=== PATIENT | female | born 1985 | race Asian ===

== ENCOUNTER 2018-04-30 13:15 | Inpatient (IN) | payer OTHER ==
[~2018-04-30 13:15] MED LIST: CEFAZOLIN 1 GM/D5W 1 GM/50 ML BAG IVPB SCH; CITRIC ACID/SODIUM CITRATE 30 ML UNIT-DOSE CUP PO ONE; ELECTROLYTE-148 SOLN 500 ML IV ONE
[2018-04-30 13:38] VITALS: BMI 28.7
[2018-04-30] MEDS ORDERED: ELECTROLYTE-148 SOLN 1,000 ML IV SCH (13:45)
[2018-04-30] MEDS ORDERED: OXYTOCIN 30 UNITS in 0.9% NS 30 UNIT/500 ML INFUS.BAG IVPB ONE (15:36)
[2018-04-30] MEDS ORDERED: morphine SULFATE/Preservative Free 0.5 MG/ML (1cc Syringe) ONE (15:42)
[2018-04-30] MEDS ORDERED: ceFAZolin SODIUM 1 GM VIAL ONE ×3 (15:42→23:49)
--- NOTE | 2018-04-30 15:47 | HP ---
Past Medical History - Primary Care Physician PCP:: Felix Porter - Admission Chief Complaint: 39 weeks, previous c/s . request of repeat c/s History Source: Patient Limitations to Obtaining History: No Limitations - Past Medical History ...: 2 ...Para: 1 ...Term: 1 ...EDC by Sumit: 05/03/18 Infectious Disease: Yes: HIV (false positive) - Past Surgical History Past Surgical History: Yes: None, Hx Myomectomy: No Hx Transabdominal Cerclage: No - Smoking History Smoking history: Never smoked Have you smoked in the past 12 months: No - Alcohol/Substance Use Hx Alcohol Use: No History of Substance Use: reports: None - Social History Usual Living Arrangement: Yes: With Spouse History of Recent Travel: No Home Medications - Allergies Allergies/Adverse Reactions: Allergies Allergy/AdvReac Type Severity Reaction Status Date / Time No Known Allergies Allergy Verified 04/30/18 13:23 - Home Medications Home Medications: Ambulatory Orders Ferrous Sulfate 325 mg PO DAILY 04/30/18 Vit/Iron Fum/Folic AC [ Tablet] 1 each PO DAILY 04/30/18 Review of Systems - Review of Systems Constitutional: reports: No Symptoms Eyes: reports: No Symptoms HENT: reports: No Symptoms Neck: reports: No Symptoms Cardiovascular: reports: No Symptoms Respiratory: reports: No Symptoms Gastrointestinal: reports: No Symptoms Genitourinary: reports: No Symptoms Breasts: reports: No Symptoms Reported Musculoskeletal: reports: No Symptoms Integumentary: reports: No Symptoms Neurological: reports: No Symptoms Endocrine: reports: No Symptoms Hematology/Lymphatic: reports: No Symptoms Psychiatric: reports: No Symptoms Physical Exam - Maternity Vital Signs: Vital Signs Temperature 98.2 F 04/30/18 13:29 Pulse Rate 83 04/30/18 13:29 Respiratory Rate 20 04/30/18 13:29 Blood Pressure 107/64 04/30/18 13:29 O2 Sat by Pulse Oximetry (%) Constitutional: Yes: Well Nourished, No Distress, Calm Eyes: Yes: WNL, Conjunctiva Clear, EOM Intact HENT: Yes: WNL, Atraumatic, Normocephalic Neck: Yes: WNL, Supple, Trachea Midline Cardiovascular: Yes: WNL, Regular Rate and Rhythm Breast(s): Yes: WNL - Abdominal Exam/OB Fundal Height: 38 Number of Fetuses: Single Presentation: Vertex Contractions: No Intensity: Unaware Monitor Mode: External Heart Rate Location: [facility] Category: I Accelerations: Uniform Decelerations: None - Vaginal Exam/OB Vaginal Bleediing: No Speculum Exam: No Dilatation (cm): closed Effacement (%): 0 Presentation: Compound Station: -3 - Physical Exam Musculoskeletal: Yes: WNL Extremities: Yes: WNL Edema: LLE: Trace, RLE: Trace Deep Tendon Reflex Grade: Normal +2 Psychiatric: Yes: WNL Hemorrhage Risk Assessment - Risk Factors Medium Risk Factors: Yes: Prior , uterine surgery,or multiple laparotomies Risk Score: 1 Risk Level: Medium Risk Problem List - Problems (1) with 39 completed weeks gestation Code(s): Z3A.39 - 39 WEEKS GESTATION OF (2) Previous section complicating Code(s): O34.219 - MATERNAL CARE FOR UNSP TYPE SCAR FROM PREVIOUS DEL Assessment/Plan repeat c/s . rba discussed
[2018-04-30] MEDS ORDERED: BENZOCAINE 20% 57 GM BOTTLE TP PRN (16:01)
[2018-04-30] MEDS ORDERED: oxyCODONE HCL 5 MG TABLET PO PRN (16:01)
[2018-04-30] MEDS ORDERED: WITCH HAZEL 50% (TUCKS) 40 PAD/JAR PAD TP PRN (16:01)
[2018-04-30] MEDS ORDERED: diphenhydrAMINE HCL 25 MG CAPSULE (FP) PO PRN (16:01)
[2018-04-30] MEDS ORDERED: BENZOCAINE 28 GM HEMORRHOIDAL OINTMENT PR PRN (16:01)
[2018-04-30] MEDS ORDERED: IBUPROFEN 800 MG/8 ML IJ IVPB PRN (16:01)
[2018-04-30] MEDS ORDERED: METHYLERGONOVINE MALEATE 0.2 MG/1 ML AMP IM PRN (16:01)
[2018-04-30] MEDS ORDERED: OXYTOCIN 20 UNITS in 0.9% NS 20 UNIT/1,000 ML INFUS.BAG IV SCH (16:15)
[2018-04-30] MEDS ORDERED: DEXTROSE 5%-LACTATED RINGERS 1,000 ML IV SCH (16:15)
[2018-04-30] MEDS ORDERED: ONDANSETRON 4 MG/2 ML VIAL IVPUSH PRN (16:41)
[2018-04-30] MEDS ORDERED: morphine SULFATE/Preservative Free 0.5 MG/ML (1cc Syringe) SPIN ONE (16:41)
[2018-04-30] MEDS ORDERED: OXYTOCIN 20 UNITS in 0.9% NS 20 UNIT/1,000 ML INFUS.BAG IV ONE (16:55)
[2018-04-30] MEDS ORDERED: ACETAMINOPHEN 325 MG TABLET (FP) ONE (19:16)
[2018-04-30] MEDS ORDERED: oxyCODONE HCL 5 MG TABLET ONE (19:17)
[2018-04-30] MEDS: oxyCODONE HCL 5 MG TABLET PO PRN (19:20)
[2018-04-30] MEDS: ACETAMINOPHEN 325 MG TABLET (FP) PO PRN (19:20)
[2018-04-30] MEDS ORDERED: DEXTROSE 5%-WATER - 50 ML IVPB ONE (23:48)
[2018-05-01] MEDS: CEFAZOLIN 1 GM in DEXTROSE 5%-WATER - 50 ML IVPB SCH ×2 (00:10→08:11)
[2018-05-01] MEDS ORDERED: OXYTOCIN 20 UNITS in 0.9% NS 20 UNIT/1,000 ML INFUS.BAG IV SCH (00:14)
[2018-05-01] MEDS ORDERED: DEXTROSE 5%-WATER - 50 ML IVPB ONE (08:05)
[2018-05-01] MEDS ORDERED: ceFAZolin SODIUM 1 GM VIAL ONE (08:05)
[2018-05-01 08:18] LABS: BASO % 0.3 % (0-2.0); EOS % 0.6 % (0-4.5); HEMATOCRIT 31.2 % (32.4-45.2); HEMOGLOBIN 10.7 GM/dL (10.7-15.3); LYMPH % 15.2 % (8-40); MCH 29.8 pg (25.7-33.7); MCHC 34.4 g/dl (32.0-36.0); MEAN CELL VOLUME 86.6 fl (80-96); MEAN PLT VOLUME 9.1 fl (7.5-11.1); NEUT % 79.9 % (42.8-82.8); PLATELET COUNT 192 K/MM3 (134-434); RDW 13.7 % (11.6-15.6); WHITE BLOOD COUNT 10.6 K/mm3 (4.0-10.0)
--- NOTE | 2018-05-01 08:39 | OP ---
DATE OF OPERATION: 04/30/2018 PREOPERATIVE DIAGNOSIS: , 39 weeks, previous section, request of repeat section. POSTOPERATIVE DIAGNOSIS: , 39 weeks, previous section, request of repeat section. PROCEDURE: Repeat low segment transverse section. SURGEON: Ashwin Rodriguez MD RETURNED GOODS REPAIRER: Siddharth Su MD ANESTHESIA: Spinal. ANESTHESIOLOGIST: Jose Clinton MD ESTIMATED BLOOD LOSS: 700 mL. FINDING: Live baby boy, Apgars 9 and 9. OPERATION: The patient was taken to the operating room, had adequate spinal anesthesia. Abdomen and perineum were prepped and draped. Pfannenstiel abdominal skin incision was made. Abdominal wall was cut layer by layer, until peritoneum was exposed and incised. Upon entering the abdominal cavity, lower uterine segment was identified. There were multiple blood vessels crossing the lower uterine segment and on each broad ligament extending to the broad ligament. These blood vessels were extending to the broad ligaments. Then, lower uterine segment was identified and bladder flap was developed and low transverse uterine incision was made. Incision extended laterally with bandaged scissors. Amniotic sac was entered. Clear fluid, head delivered from occiput transverse position. Nasal sinuses were suctioned, and live baby boy was delivered without any difficulty. Placenta was delivered manually. Uterine cavity was cleaned of all remaining tissue. Uterus appeared to be atonic and not uday well. Methergine was given. Uterine incision was closed in 2 layers, 1st layer with 0 Biosyn continuous suture, the 2nd layer with 0 Biosyn imbricating the 1st layer. There was some bleeding at both edges, which were sutured with interrupted suture 0 Biosyn, and then hemostasis was established. Pelvic cavity several times irrigated. No active bleeding was seen. Then, bladder flap was closed with 0 Biosyn continuous suture. Both tubes and ovaries were checked, were normal. No active bleeding was seen. All the lap pad, sponge, and instrument counts were correct. Again, the incision edges were checked with no bleeding, and at this time, uterine incision edges were checked. At this time, there was no active bleeding seen. Then, peritoneum was closed with 0 Biosyn continuous suture, muscles were brought together with interrupted sutures of 0 Biosyn, fascia was closed with 0 Biosyn continuous suture, subcutaneous fat with interrupted suture of 0 Biosyn, and the skin was closed with 3-0 Vicryl subcuticular continuous suture. Patient tolerated the procedure well, left the OR in good condition. ASHWIN RODRIGUEZ M.D. [id number]
[2018-05-01] MEDS: IBUPROFEN 600 MG TABLET (FP) PO PRN ×2 (09:21→20:08)
[2018-05-01] MEDS: ENOXAPARIN NA (PORCINE) 40 MG/0.4 ML DISP.SYRIN SQ SCH (09:21)
[2018-05-01] MEDS: SIMETHICONE 80 MG TAB.CHEW (FP) PO PRN ×2 (09:22→20:08)
[2018-05-01] MEDS: ACETAMINOPHEN 325 MG TABLET (FP) PO PRN ×2 (09:22→20:09)
--- NOTE | 2018-05-01 10:16 | PN ---
Progress Note (short form) - Note Progress Note: Post op day#1.S/p C section under spinal anesthesia with duramorph uneventful.Patient stable and has little pain for which she is on medication.no any anesthesia related problem.Patient DC from the anesthesia care.
[2018-05-01] MEDS ORDERED: BISACODYL 10 MG SUPP.RECT PR PRN (16:01)
[2018-05-01] MEDS: SENNOSIDES/DOCUSATE COMBO (SENNA PLUS) TABLET (UD) PO PRN (20:08)
[2018-05-02] MEDS: SIMETHICONE 80 MG TAB.CHEW (FP) PO PRN ×5 (00:35→21:15)
[2018-05-02] MEDS: IBUPROFEN 600 MG TABLET (FP) PO PRN ×5 (00:35→21:16)
[2018-05-02] MEDS: ACETAMINOPHEN 325 MG TABLET (FP) PO PRN ×3 (00:36→11:36)
--- NOTE | 2018-05-02 09:52 | PN ---
Progress Note (short form) - Note Progress Note: pod 1 doing well, ambulating. afebrile, VSS CBC, BMP 05/01/18 07:15 abdomen soft, no distension, no cva incision dry, clean no calf tenderness plan ambulate , advance diet Problem List - Problems (1) with 39 completed weeks gestation Code(s): Z3A.39 - 39 WEEKS GESTATION OF (2) Previous section complicating Code(s): O34.219 - MATERNAL CARE FOR UNSP TYPE SCAR FROM PREVIOUS DEL
--- NOTE | 2018-05-02 09:54 | PN ---
Progress Note (short form) - Note Progress Note: pod 2 s/p repeat c/s , passing gas ,ambulating, voids ok CBC, BMP 05/01/18 07:15 Last Vital Signs Temp Pulse Resp BP Pulse Ox 97.9 F 54 L 20 96/58 100 05/02/18 07:30 05/02/18 07:30 05/02/18 07:30 05/02/18 07:30 04/30/18 18:30 abdomen sofr, no distension, no cva incision healing well, no redness ,no discharge no ca;lf tenderness plan ambulate , cbc in am Problem List - Problems (1) with 39 completed weeks gestation Code(s): Z3A.39 - 39 WEEKS GESTATION OF (2) Previous section complicating Code(s): O34.219 - MATERNAL CARE FOR UNSP TYPE SCAR FROM PREVIOUS DEL
[2018-05-02] MEDS: ENOXAPARIN NA (PORCINE) 40 MG/0.4 ML DISP.SYRIN SQ SCH (10:00)
--- NOTE | 2018-05-02 12:06 | DS ---
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 Vital Signs: Vital Signs Temperature 97.9 F 05/02/18 07:30 Pulse Rate 54 L 05/02/18 07:30 Respiratory Rate 20 05/02/18 07:30 Blood Pressure 96/58 05/02/18 07:30 O2 Sat by Pulse Oximetry (%) 100 04/30/18 18:30 Constitutional: Yes: Well Nourished, No Distress, Calm Eyes: Yes: WNL, Conjunctiva Clear, EOM Intact HENT: Yes: WNL, Atraumatic, Normocephalic Neck: Yes: WNL, Supple, Trachea Midline Cardiovascular: Yes: WNL, Regular Rate and Rhythm Respiratory: Yes: WNL, Regular, CTA Bilaterally Gastrointestinal: Yes: WNL ...Rectal Exam: Yes: WNL Renal/: Yes: WNL ....Post : Yes: Uterus firm, Uterus non-tender, Slight lochia rubra Breast(s): Yes: WNL Musculoskeletal: Yes: WNL Extremities: Yes: WNL Edema: No Integumentary: Yes: WNL Wound/Incision: Yes: Clean/Dry, Well Approximated, Sutures Intact Neurological: Yes: WNL, Alert, Oriented ...Motor Strength: WNL Psychiatric: Yes: WNL, Alert, Oriented Labs: CBC, BMP 05/01/18 07:15 Delivery - Delivery Section: Repeat, Low Flap Transverse (no complication) Type of Anesthesia: Spinal Episiotomy/Laceration: None EBL (cc): 700 Delivery, Single - Stages of Labor Date of Delivery: 04/30/18 Time of Delivery: 16:21 Time Placenta Delivered: 16:23 Placenta: Yes: Expressed - Condition of Infant 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 Present: Yes Name: Chucky Bautista Infant Gender: Male Weight: 7 lb 5 oz Position: Right, OT Total Hours ROM (Hrs/Mins): 0/02 - 1 Minute Total Score: 9 5 Minutes Total Score: 9 - [place] Feeding Plan Initial Plan: Elected not to breastfeed exclusively throughout hospitalization Discharge Summary Reason For Visit: Current Active Problems with 39 completed weeks gestation (Acute) Previous section complicating (Acute) Procedures: Principal: repeat LST c/s Hospital Course: no complication - Instructions - Home Medications Comprehensive Discharge Medication List: Ambulatory Orders Ferrous Sulfate 325 mg PO DAILY 04/30/18 Vit/Iron Fum/Folic AC [ Tablet] 1 each PO DAILY 04/30/18
--- NOTE | 2018-05-02 15:39 | PATH ---
Surgical Pathology Report Patient Name: TATIANA LANCE [facility]. Rec. #: [id number] /Age/Gender: 1985 (Age: 33) / F Account: [id number] Location: [facility] OBS/TRAVEL DIRECTOR Taken: 04/30/2018 Received: 05/01/2018 Reported: 05/02/2018 Physicians: Felix Porter M.D. Specimen(s) Received PLACENTA Clinical History , 2015 Final Diagnosis Placenta, : mature third trimester placenta with trivessel umbilical cord. Electronically Signed Brianne Olvera M.D. Gross Description The specimen is received fresh labeled placenta and is a 406 gram, 19.0 x 14.5 x 2.0 cm. placenta with attached membranes and umbilical cord. The attached membranes are meza, translucent with focal opacities and insert marginally. The umbilical cord measures 42 cm. in length and averages 1.3 cm. in diameter. The cord inserts eccentrically, 3 cm. to the nearest margin. No true knots or strictures are identified. Cut surface of the umbilical cord reveals 3 vessels. The surface is louise-blue with minimal fibrin deposition and appropriate caliber vessels. The maternal surface is red-brown with focal defects. Sectioning reveals red-brown, spongy parenchyma. No lesions are identified. Statistical Machine Servicer sections are submitted in three cassettes as follows: 1- membrane rolls and umbilical cord; 2-3- full thickness sections of placenta. /05/01/2018 [facility]05/01/2018
[2018-05-02] MEDS: oxyCODONE HCL 5 MG TABLET PO PRN ×2 (16:04→21:15)
[2018-05-02] MEDS: SENNOSIDES/DOCUSATE COMBO (SENNA PLUS) TABLET (UD) PO PRN (21:15)
[2018-05-03] MEDS: IBUPROFEN 600 MG TABLET (FP) PO PRN ×4 (03:09→18:21)
[2018-05-03] MEDS: SIMETHICONE 80 MG TAB.CHEW (FP) PO PRN ×5 (03:09→23:08)
[2018-05-03] MEDS: oxyCODONE HCL 5 MG TABLET PO PRN ×5 (03:10→23:08)
--- NOTE | 2018-05-03 08:12 | PN ---
Post Progress Note - Subjective Subjective: Patient without acute complaints. Reports tolerating oral intake without nausea or vomiting. Ambulating without dizziness. Denies fevers or chills. Pain well controlled with oral pain medication. with supplementation. Passing flatus. Post Day: 3 Type of Delivery: Repeat C/S Vital Signs: Vital Signs Temperature 98.2 F 05/02/18 21:32 Pulse Rate 76 05/02/18 21:32 Respiratory Rate 20 05/02/18 21:32 Blood Pressure 103/65 05/02/18 21:32 O2 Sat by Pulse Oximetry (%) 100 04/30/18 18:30 Breast Exam: Yes: Soft Uterus: Yes: Fundus Firm, Fundus below umbilicus Incision: Yes: Sutures intact. No: Redness, Oozing Abdomen/GI: Yes: Abdomen soft, Abdominal Distention (soft), Tender (mild incisional), Passing flatus, Tolerating PO Lochia: Yes: Serosa Lochia, amount: Small Extremities: Yes: Calves non-tender. No: Edema Activity: Ambulating - Labs Labs: CBC WBC 10.6 K/mm3 (4.0-10.0) H 05/01/18 07:15 RBC 3.60 M/mm3 (3.60-5.2) 05/01/18 07:15 Hgb 10.7 GM/dL (10.7-15.3) 05/01/18 07:15 Hct 31.2 % (32.4-45.2) L 05/01/18 07:15 MCV 86.6 fl (80-96) 05/01/18 07:15 MCH 29.8 pg (25.7-33.7) 05/01/18 07:15 MCHC 34.4 g/dl (32.0-36.0) 05/01/18 07:15 RDW 13.7 % (11.6-15.6) 05/01/18 07:15 Plt Count 192 K/MM3 (134-434) 05/01/18 07:15 MPV 9.1 fl (7.5-11.1) 05/01/18 07:15 Absolute Neuts (auto) 8.5 # 05/01/18 07:15 Neutrophils % 79.9 % (42.8-82.8) 05/01/18 07:15 Lymphocytes % 15.2 % (8-40) 05/01/18 07:15 Monocytes % 4.0 % (3.8-10.2) 05/01/18 07:15 Eosinophils % 0.6 % (0-4.5) 05/01/18 07:15 Basophils % 0.3 % (0-2.0) 05/01/18 07:15 Nucleated RBC % 0 % (0-0) 05/01/18 07:15 Assessment/Plan 32 POD # 3 s/p repeat CD, afebrile, vital signs stable, doing well 1. Patient stable for discharge home tomorrow. 2. Will continue routine PO care 3. Desires oxycodone for DC, will send today [facility] Reference #: [id number] 4. Will continue to monitor
[2018-05-03 09:02] LABS: BASO % 0.5 % (0-2.0); EOS % 1.8 % (0-4.5); HEMATOCRIT 30.9 % (32.4-45.2); HEMOGLOBIN 10.7 GM/dL (10.7-15.3); LYMPH % 18.8 % (8-40); MCHC 34.5 g/dl (32.0-36.0); MEAN CELL VOLUME 86.9 fl (80-96); MEAN PLT VOLUME 8.6 fl (7.5-11.1); MONO % 3.6 % (3.8-10.2); NEUT % 75.3 % (42.8-82.8); PLATELET COUNT 239 K/MM3 (134-434); RBC 3.55 M/mm3 (3.60-5.2); RDW 14.2 % (11.6-15.6); WHITE BLOOD COUNT 9.7 K/mm3 (4.0-10.0)
[2018-05-03] MEDS: ENOXAPARIN NA (PORCINE) 40 MG/0.4 ML DISP.SYRIN SQ SCH (10:37)
[2018-05-03] MEDS: ACETAMINOPHEN 325 MG TABLET (FP) PO PRN (23:08)
[2018-05-03 23:14] VITALS: TEMP 98.1
[2018-05-04] MEDS: IBUPROFEN 600 MG TABLET (FP) PO PRN (06:03)
[2018-05-04] MEDS: SIMETHICONE 80 MG TAB.CHEW (FP) PO PRN (06:03)
[2018-05-04] MEDS: oxyCODONE HCL 5 MG TABLET PO PRN (06:03)
--- NOTE | 2018-05-04 07:51 | PN ---
Progress Note (short form) - Note Progress Note: pod 4 s/p repeat c/s , no c/o CBC, BMP 05/03/18 08:37 Last Vital Signs Temp Pulse Resp BP Pulse Ox 98.1 F 75 20 98/70 100 05/03/18 21:00 05/03/18 21:00 05/03/18 21:00 05/03/18 21:00 04/30/18 18:30 abdomen soft, no distension, no cva uterus firm, non tender lochia mild no calf tenderness plan d/c home , follow up office 1 week Problem List - Problems (1) with 39 completed weeks gestation Code(s): Z3A.39 - 39 WEEKS GESTATION OF (2) Previous section complicating Code(s): O34.219 - MATERNAL CARE FOR UNSP TYPE SCAR FROM PREVIOUS DEL
[2018-05-04 07:52] VITALS: BP 110/65; PULSE 73
[2018-05-04] MEDS: ENOXAPARIN NA (PORCINE) 40 MG/0.4 ML DISP.SYRIN SQ SCH (09:22)
== END 2018-05-04 10:15 | disposition home or self-care (01) | DRG 766 ==
LOC: JLDR 13:15 → J3W 19:55
PROVIDERS: ADMIT Obstetrics & Gynecology; ATTEND Obstetrics & Gynecology
PROC: 10D00Z1 Extraction of Products of Conception, Low, Open Approach (ICD-10-PCS; principal; 2018-04-30)
DX: O34.219 Maternal care for unspecified type scar from previous cesarean delivery (principal); Z3A.39 39 weeks gestation of pregnancy; Z37.0 Single live birth
CPT/HCPCS: 36415; 85025; 86850; 86900; 86901; 88307-TC